=== PATIENT | female | born 1960 | race Caucasian/White ===

== ENCOUNTER → 2018-08-30 | Outpatient (CLI) | payer OTHER ==
[2018-08-30 17:47] LABS: Albumin 4.6 g/dL (3.80-4.90); Albumin/Globulin Ratio 2.42 (1.20-2.10); Anion Gap 7.2 mmol/L (4.00-12.00); Calcium 9.4 mg/dL (8.7-10.3); Carbon Dioxide 31.8 mmol/L (21.6-31.8); Globulin 1.9 g/dL (1.6-3.3); LDL Cholesterol,Calculated 115.6 mg/dL (0.0-131.0); Potassium 4.3 mmol/L (3.5-5.5); Total Bilirubin 0.7 mg/dL (0.3-1.2); Total Protein 6.5 g/dL (6.2-8.2); VLDL Calculation 53.4 mg/dL (5.00-40.00)
== END | disposition home or self-care (01) ==
LOC: LABWHC1 10:01
PROVIDERS: ATTEND Internal Medicine Clinical Cardiac Electrophysiology
DX: I10 Essential (primary) hypertension (principal); R00.2 Palpitations; E78.1 Pure hyperglyceridemia; E78.6 Lipoprotein deficiency
CPT/HCPCS: 36415; 80053; 80061; 84443

== ENCOUNTER → 2018-10-28 | Outpatient (CLI) | payer OTHER ==
--- NOTE | 2018-10-28 09:27 | CT ---
EXAMINATION TYPE: CT angio chest DATE OF EXAM: 10/28/2018 COMPARISON: NONE HISTORY: Abn ECHO, aneurysm CT DLP: 226.4 mGycm. Automated Exposure Control for Dose Reduction was Utilized. CONTRAST: CTA scan of the thorax is performed with IV Contrast, patient injected with 100 mL of Isovue 370, pul monary embolism protocol. MIP Images are created on CT scanner and reviewed. FINDINGS: LUNGS: There is a 3 mm solid pulmonary nodule within the left upper lobe anteriorly on series 4 image 27. Remainder the lungs are clear. There is no pleural effusion or pneumothorax seen. The tracheobr onchial tree is patent. MEDIASTINUM: There is aneurysmal dilatation of the ascending thoracic aorta measuring approximately 4 .6 cm on series 7 image 12. The aortic root is upper limits normal measuring 3.9 cm. There is a conve ntional three-vessel branch pattern of the aortic arch. The descending thoracic aorta is within dusty l limits measuring 2.7 cm. There is satisfactory enhancement of the pulmonary artery and its branches , there is no CT evidence for central pulmonary embolism. There are no greater than 1 cm hilar or me diastinal lymph nodes. No pericardial effusion is seen. Heart is mildly enlarged. OTHER: There is a small hiatal hernia present. Right hemidiaphragm elevation is noted. Diffuse hypoat tenuation of the hepatic parenchyma relates underlying hepatic steatosis. Moderate multilevel degener ative changes of the spine are seen. IMPRESSION: 1. Aneurysmal dilatation of the ascending thoracic aorta measuring up to 4.6 cm. No evidence of disse ction. 2. Left-sided 3 mm solid pulmonary nodule for which CT thorax is recommended in 12 months to establis h stability. 3. Small hiatal hernia. 4. Hepatic steatosis.
== END | disposition home or self-care (01) ==
LOC: RADCTMAIN 07:08
PROVIDERS: ATTEND Internal Medicine Clinical Cardiac Electrophysiology
DX: I71.2 Thoracic aortic aneurysm, without rupture (principal); Z88.0 Allergy status to penicillin
CPT/HCPCS: 71275; Q9967

== ENCOUNTER → 2019-02-06 | Outpatient (CLI) | payer OTHER ==
[2019-02-06 16:40] LABS: LDL Cholesterol,Calculated 71.6 mg/dL (0.0-131.0); VLDL Calculation 60.4 mg/dL (5.00-40.00)
== END | disposition home or self-care (01) ==
LOC: LABWHC1 07:49
PROVIDERS: ATTEND Nurse Practitioner Adult Health
DX: E78.5 Hyperlipidemia, unspecified (principal)
CPT/HCPCS: 36415; 80061

== ENCOUNTER 2022-12-01 09:52 | Day surgery (SDC) | payer BC, OTHER ==
[2022-11-28 17:17] VITALS: BMI 29.6
[~2022-12-01 09:52] MED LIST: LACTATED RINGERS 1,000 ML IV SCH; NA PHOS,M-B/NA PHOS,DI-BA 133 ML ENEMA RECTAL STA
[2022-12-01 10:24] VITALS: TEMP 97.9
[2022-12-01] MEDS ORDERED: NA PHOS,M-B/NA PHOS,DI-BA 133 ML ENEMA RECTAL ONE ×2 (10:25)
[2022-12-01] MEDS ORDERED: PROPOFOL 10 MG/ML 20 ML VIAL IV ONE (11:56)
[2022-12-01] MEDS ORDERED: LIDOCAINE 2% INJ 20 MG/ML (2 ML VIAL) ONE (11:56)
--- NOTE | 2022-12-01 12:16 | P.PCN ---
Date of Procedure: 12/01/22 Procedure(s) Performed: BRIEF HISTORY: Patient is a 62-year-old pleasant white female scheduled for an elective colonoscopy as a part of screening for colon cancer and positive Cologuard, she has a family history of colon cancer diagnosed in her sister at age 60. PROCEDURE PERFORMED: Colonoscopy with snare polyp rectum. PREOPERATIVE DIAGNOSIS: Screening for colon cancer/positive cologuard and family history of colon cancer. IV sedation per Anesthesia. PROCEDURE: After informed consent was obtained, the patient, was brought into the endoscopy unit. IV sedation was administered by Anesthesia under continuous monitoring. Digital rectal examination was normal. Initially the Olympus CF-160 flexible video colonoscope was then inserted in the rectum, gradually advanced into the cecum without any difficulty. Careful examination was performed as the scope was gradually being withdrawn. Ileocecal valve and the appendiceal orifice were visualized and appeared normal. Prep was poor. Mucosa of the cecum could not be adequately visualized because of solid stool noted in the base of the cecum that could not be irrigated. Mucosa of the, ascending colon, transverse colon, descending colon, sigmoid colon, and rectum appeared normal. Some areas of the ascending colon and transverse [place] could not be visualized because of solid stool in this area. In the proximal rectum there was a 5 limited polyp that was removed by snare polypectomy. Retroflexion was performed in the rectum and no lesions were seen. The patient tolerated the procedure well. IMPRESSION: 5 mm proximal rectal polyp status post snare polypectomy Poor prep in several areas of the colon RECOMMENDATIONS: Findings of this examination were discussed with the patient as well as her family. She was advised to follow with the biopsy results. She can have a repeat colonoscopy in 5 years..
[2022-12-01 12:21] VITALS: BP 126/85; RESP 16
[2022-12-01 12:40] VITALS: PULSE 63
== END 2022-12-01 13:03 | disposition home or self-care (01) ==
LOC: ORWHC2ENDO 09:52
PROVIDERS: ATTEND Internal Medicine Gastroenterology
DX: D12.8 Benign neoplasm of rectum (principal); I10 Essential (primary) hypertension; E78.5 Hyperlipidemia, unspecified; G47.33 Obstructive sleep apnea (adult) (pediatric); E03.9 Hypothyroidism, unspecified; Z79.890 Hormone replacement therapy; Z80.0 Family history of malignant neoplasm of digestive organs; Z79.899 Other long term (current) drug therapy; Z90.89 Acquired absence of other organs; Z88.0 Allergy status to penicillin; Z98.890 Other specified postprocedural states
CPT/HCPCS: 88305; 45385; J2704; J2001